=== PATIENT | male | born 1935 | race Native Hawaiian/Other Pacific Islander ===

== ENCOUNTER 2017-03-26 15:01 | Outpatient (CLI) | payer OTHER ==
[~2017-03-26 15:01] MED LIST: ACET5TAB36 PO; MEGE40TA32 PO; RANI150T78 PO
== END 2017-03-26 16:05 | disposition home or self-care (01) ==
LOC: RAD 15:01
DX: S89.81XA Other specified injuries of right lower leg, initial encounter (principal)

== ENCOUNTER 2018-03-12 15:40 | Outpatient (CLI) | payer OTHER | END 2018-03-12 22:17 | disposition home or self-care (01) | LOC: RAD 15:40 | DX: M79.671 Pain in right foot (principal) ==

== ENCOUNTER 2019-08-20 16:10 | Observation (INO) | payer OTHER ==
[~2019-08-20] VITALS: Ht 185.4 cm; Wt 40.9 kg
[2019-08-20 17:55] LABS: PLATELET COUNT 188 K/uL (142-355)
[2019-08-20 18:05] VITALS: BP 148/77; TEMP 97.5; Ht 185.4 cm; Wt 40.9 kg
[2019-08-20 20:00] VITALS: BP 144/75; TEMP 98.9
[2019-08-20 20:44] LABS: POTASSIUM 4.2 mmol/L (3.6-5.2)
[2019-08-21 00:29] VITALS: BP 111/50; TEMP 98.1
[2019-08-21 04:00] VITALS: BP 128/60; TEMP 98.3
[2019-08-21 08:00] VITALS: BP 122/53; TEMP 97.9
[2019-08-21 11:25] LABS: PLATELET COUNT 160 K/uL (142-355)
[2019-08-21 11:39] LABS: POTASSIUM 2.7 mmol/L (3.6-5.2); SODIUM 140 mmol/L (136-145)
[2019-08-21 12:00] VITALS: BP 132/63; TEMP 97.7
--- NOTE | 2019-08-21 12:07 | NUR ---
NOTFIED MD OF CXR FINDINGS AND LAB RESULTS. AWAITING MD ORDERS.
--- NOTE | 2019-08-21 12:09 | NUR ---
MEDICAL ATTENDANT NOTIFIED MD OF LAB RESULTS AND CXR AT THIS TIME. NEW ORDER FOR POTASSIUM 40MEQ X2 DOSES NOW.
[2019-08-21 16:00] VITALS: BP 126/75; TEMP 98
--- NOTE | 2019-08-21 18:45 | NUR ---
ENSURE GIVEN TO PATIENT WITH MEAL. PATIENT NOTED TO HAVE CONSUMED 120ML OF PREVIOUS ENSURE. FLUIDS AND POTASSIUM INFUSING WITHOUT DIFFICULTY. NO COMPLAINTS AT THIS TIME. WILL CONTINUE TO MONITOR.
[2019-08-21 20:00] VITALS: BP 119/62; TEMP 98.4
[2019-08-22] VITALS: BP 109/67; TEMP 98.2
[2019-08-22 04:00] VITALS: BP 121/67; TEMP 97.8
[2019-08-22 04:39] LABS: PLATELET COUNT 173 K/uL (142-355)
[2019-08-22 05:07] LABS: POTASSIUM 4.8 mmol/L (3.6-5.2)
[2019-08-22 07:56] VITALS: BP 113/78; TEMP 97.5
[2019-08-22 11:36] VITALS: BP 133/70; TEMP 97.8
--- NOTE | 2019-08-22 15:09 | NUR ---
PATIENTS SON GIVEN DISCHARGE INSTRUCTIONS FOLLOWED. PATIENT IS TO TAKE ALL ANTIBIOTICS ORDERED AND PREDNISONE DIRECTED. PATIENT INSTRUCTED TO PURCHASE ALCOHOL,VINEGAR, HYDROGEN PEROXIDE AND MIX PLACING A FEW DROPS IN EACH EAR AND LETTING IT SIT FOR 2-3 MINUTES, TO HELP WITH EAR WAX REMOVAL. IV TO THE RIGHT FOREARM REMOVED WITH TIP INTACT. PATIENT TAKEN VIA WHEELCHAIR TO POV IN NO ACUTE DISTRESS.
== END 2019-08-22 15:00 | disposition home or self-care (01) ==
LOC: MED/SURG 16:10
PROVIDERS: ADMIT Family Medicine
DX: J44.1 Chronic obstructive pulmonary disease with (acute) exacerbation (principal); E87.6 Hypokalemia; R63.0 Anorexia; R09.02 Hypoxemia; F03.90 Unspecified dementia, unspecified severity, without behavioral disturbance, psychotic disturbance, mood disturbance, and anxiety; E86.0 Dehydration; Z72.0 Tobacco use
CPT/HCPCS: 36415; 80053; 83735; 85027; 87040; 87070; 87077; 87186; 87205; 87899; 93005; 94640; 94664; 94760; 96360; 96361; 96367; 99220; G0378; G0379; J0456; J0696; J2920; J3480

== ENCOUNTER 2019-10-19 15:20 | Outpatient (CLI) | payer OTHER | END 2019-10-19 19:21 | disposition home or self-care (01) | LOC: RAD 15:20 | DX: S70.01XA Contusion of right hip, initial encounter (principal) ==